=== PATIENT | male | born 1970 | race Caucasian/White ===

== ENCOUNTER 2022-09-05 19:36 | Emergency (ER) | payer MEDICARE ==
[2022-09-05] MEDS ORDERED: Lidocaine 1% 10 ML MDV INJECT ONE (20:10)
== END 2022-09-05 21:19 | disposition home or self-care (01) ==
LOC: JD.ED 19:36
DX: L02.413 Cutaneous abscess of right upper limb (principal); Z86.73 Personal history of transient ischemic attack (TIA), and cerebral infarction without residual deficits; Z88.8 Allergy status to other drugs, medicaments and biological substances; Z72.0 Tobacco use
CPT/HCPCS: 10060; 10061; 99282; 99283

== ENCOUNTER 2022-09-11 12:00 | Emergency (ER) | payer MEDICARE ==
[2022-09-11] MEDS ORDERED: Sodium Chloride 0.9% 10 ML Syringe FLUSH PRN (12:38)
[2022-09-11] MEDS ORDERED: Lidocaine/EPINEPHrine/Tetracaine Soln 1 ML TOP ONE (12:38)
[2022-09-11 13:28] LABS: ESTIMATED GFR 90 mL/min (>60)
[2022-09-11] MEDS ORDERED: cefTRIAXone 2 GM in Sodium Chloride 0.9% 100 ML IV ONE (13:55)
== END 2022-09-11 15:25 | disposition home or self-care (01) ==
LOC: JD.ED 12:00
DX: L03.113 Cellulitis of right upper limb (principal); F17.210 Nicotine dependence, cigarettes, uncomplicated; B20 Human immunodeficiency virus [HIV] disease; Z86.73 Personal history of transient ischemic attack (TIA), and cerebral infarction without residual deficits; Z79.899 Other long term (current) drug therapy; Z88.8 Allergy status to other drugs, medicaments and biological substances
CPT/HCPCS: 36415; 80053; 85025; 86140; 96365; 99283; J0696; J3490